=== PATIENT | female | born 1970 | race Two or more races ===

== ENCOUNTER → 2024-07-06 09:16 | Outpatient (REF) | payer OTHER, SELFPAY | LOC: WDC 09:16 | PROVIDERS: ATTENDING PHYSICIAN Obstetrics & Gynecology; FAMILY PHYSICIAN Family Medicine | DX: N63.20 Unspecified lump in the left breast, unspecified quadrant (principal); N63.32 Unspecified lump in axillary tail of the left breast; N63.23 Unspecified lump in the left breast, lower outer quadrant | CPT/HCPCS: 76642; 77061; 77065 ==

== ENCOUNTER → 2024-07-20 08:32 | Outpatient (REF) | payer OTHER, SELFPAY | LOC: WDC 08:32 | PROVIDERS: ATTENDING PHYSICIAN Obstetrics & Gynecology; FAMILY PHYSICIAN Family Medicine | DX: N63.23 Unspecified lump in the left breast, lower outer quadrant (principal) | CPT/HCPCS: 19000; 76942 ==